=== PATIENT | female | born 2000 | race Two or more races ===

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

== ENCOUNTER 2020-03-25 20:23 | Emergency (ER) | payer MEDICAID ==
--- NOTE | 2020-03-25 20:50 | ER Document Report ---
ED General - General Chief Complaint: Hemorrhoids Stated Complaint: REPORTS HEMORRHOIDS Time Seen by Provider: 03/25/20 20:49 Primary Care Provider: CANDIDO BLACKWELL MD [Primary Care Provider] - Follow up as needed Mode of Arrival: Ambulatory Information source: Patient Notes: 20-year-old Citizen Of The [place] female arrives with chief complaint of having swollen belly from with some hemorrhoids. Patient was inspected with nursing staff around 2100 with internal hemorrhoids and fundus and epigastric area. She has had no care and has been feeling kicking. She reports she has had on and off periods irregular for the last several months and her last menstrual flow was in January 2020 Patient reports she is G2, P1 with a 1-year-old daughter at home. TRAVEL OUTSIDE OF THE [place] IN LAST 30 DAYS: No - Related Data Allergies/Adverse Reactions: No Known Allergies Allergy (Verified 03/25/20 20:43) Past Medical History - General Information source: Patient - Social History Smoking Status: Never Smoker Cigarette use (# per day): No Chew tobacco use (# tins/day): No Smoking Education Provided: No Frequency of alcohol use: None Drug Abuse: None Lives with: Family Family History: Reviewed & Not Pertinent Patient has homicidal ideation: No Renal/ Medical History: Denies: Hx Peritoneal Dialysis Review of Systems - Review of Systems Constitutional: No symptoms reported EENT: No symptoms reported Cardiovascular: No symptoms reported Respiratory: No symptoms reported Gastrointestinal: See HPI, Abdomen distended, Abdominal pain, Other - Hemorrhoid internal externally displaced on Valsalva Genitourinary: No symptoms reported Female Genitourinary: No symptoms reported Musculoskeletal: No symptoms reported Skin: No symptoms reported Hematologic/Lymphatic: No symptoms reported Neurological/Psychological: No symptoms reported Physical Exam - Vital signs Vitals: Temp 98.7 F 03/25/20 20:31 Interpretation: Normal - HEENT Head: Normocephalic, Atraumatic Eyes: Normal Pupils: PERRL Pharynx: Normal Neck: Normal - Respiratory Respiratory status: No respiratory distress Chest status: Nontender Breath sounds: Normal Chest palpation: Normal - Cardiovascular Rhythm: Regular Heart sounds: Normal auscultation Murmur: No - Abdominal Inspection: Gravid female Distension: Distended Bowel sounds: Normal Tenderness: Nontender Organomegaly: No organomegaly - Rectal Tenderness: Yes Hemorrhoids: Internal - Genitourinary External exam: Normal - Back Back: Normal - Extremities General upper extremity: Normal inspection General lower extremity: Normal inspection - Neurological Neuro grossly intact: Yes Cognition: Normal Orientation: AAOx4 Lesa Coma Scale Eye Opening: Spontaneous [place]a Coma Scale Verbal: Oriented [place]a Coma Scale Motor: Obeys Commands [place] Coma Scale Total: 15 Speech: Normal Motor strength normal: LUE, RUE, LLE, RLE Sensory: Normal - Psychological Associated symptoms: Normal affect - Skin Skin Temperature: Warm Skin Moisture: Dry Course - Vital Signs Vital signs: Temp Pulse Resp BP Pulse Ox 98.7 F 03/25/20 20:31 - Laboratory Result Diagrams: 03/25/20 21:10 03/25/20 21:10 Laboratory results interpreted by me: 03/25/20 03/25/20 21:10 21:10 Hgb 10.7 L Hct 32.1 L RDW 15.2 H Sodium 132.0 L Carbon Dioxide 20 L BUN 6 L Creatinine 0.35 L Alkaline Phosphatase 198 H Albumin 3.3 L Beta HCG, Quant 6786.40 H - Diagnostic Test Radiology reviewed: Reports reviewed Radiology results interpreted by me: 03/25/20 22:53 pt at 35 weeks 5lb 11 oz Critical Care Note - Critical Care Note Total time excluding time spent on procedures (mins): 90 Comments: I discussed this case with Dr. Donovan and she advises sending the patient upstairs to L&D; I discussed this with patient and she advises she is agreeable to this. Discharge - Discharge Clinical Impression: Qualifiers: Weeks of gestation: 35 weeks Qualified Code(s): Z3A.35 - 35 weeks gestation of Condition: Good Disposition: LABOR CHECK Admitting Provider: nasir Unit Admitted: Labor and Delivery Additional Instructions: Send patient upstairs to L&D Referrals: CANDIDO BLACKWELL MD [Primary Care Provider] - Follow up as needed
[2020-03-25] MEDS ORDERED: BACITRACIN ZINC OINTMENT 15 GM TP ONE (21:03)
[2020-03-25] MEDS ORDERED: HYDROCORTISONE 1% OINTMENT 28.35 GM TP SCH (21:15)
[2020-03-25 21:28] LABS: ABSOLUTE EOSINOPHILS # (AUTO) 0.1 10^3/uL (0.0-0.6); ABSOLUTE LYMPHOCYTES (AUTO) 1.8 10^3/uL (0.5-4.7); ABSOLUTE MONOCYTES (AUTO) 0.6 10^3/uL (0.1-1.4); ABSOLUTE NEUT (AUTO) 4.9 10^3/uL (1.7-8.2); BASOPHILS % (AUTO) 0.4 % (0-2); EOSINOPHILS % (AUTO) 1.7 % (0-6); HEMATOCRIT 32.1 % (36.0-47.0); HEMOGLOBIN 10.7 g/dL (12.0-15.5); LYMPHOCYTES % (AUTO) 24.5 % (13-45); MEAN CORPUSCULAR HEMOGLOBIN 27.1 pg (27.0-33.4); MEAN CORPUSCULAR HGB CONC 33.3 g/dL (32.0-36.0); MEAN CORPUSCULAR VOLUME 81 fl (80-97); MONOCYTES % (AUTO) 7.5 % (3-13); PLATELET COUNT 237 10^3/uL (150-450); RED BLOOD COUNT 3.95 10^6/uL (3.72-5.28); RED CELL DISTRIBUTION WIDTH 15.2 % (11.5-14.0); SEGMENTED NEUTROPHILS % (AUTO) 65.9 % (42-78); TOTAL CELLS COUNTED % (AUTO) 100 %; WHITE BLOOD COUNT 7.5 10^3/uL (4.0-10.5)
[2020-03-25 21:54] LABS: ALBUMIN 3.3 g/dL (3.5-5.0); ALKALINE PHOSPHATASE 198 U/L (38-126); ANION GAP 9 (5-19); ASPARTATE AMINO TRANSFERASE 17 U/L (14-36); BILIRUBIN,TOTAL 0.4 mg/dL (0.2-1.3); BLOOD UREA NITROGEN 6 mg/dL (7-20); CALCIUM 8.6 mg/dL (8.4-10.2); CARBON DIOXIDE 20 mmol/L (22-30); CHLORIDE 103 mmol/L (98-107); GLUCOSE 86 mg/dL (75-110); POTASSIUM 3.6 mmol/L (3.6-5.0); TOTAL PROTEIN 6.5 g/dL (6.3-8.2)
--- NOTE | 2020-03-25 22:30 | RADIOLOGY REPORT (SQ) ---
EXAM DESCRIPTION: [facility]: US FOLLOW UP CLINICAL HISTORY: 20 years Female; distended abd hemorrhoids; LMP 01/15/2020, 10 weeks 0 days TECHNIQUE: Transabdominal obstetrical ultrasound was performed. COMPARISON: None. FINDINGS: Number of fetuses: Single position: Vertex BPD: 8.61 cm, 34 weeks 5 days HC: 30.83 cm, 34 weeks 3 days AC: 31.31 cm, 35 weeks 2 days FL: 6.8 cm, 35 weeks 0 days EFW: 2572 g HR: 139 BPM Anatomy: Limited evaluation on this survey exam Amniotic fluid: REHANA 5.5 cm, decreased. LBP 2.4 x 3.4 cm Cervix: Could not be visualized Placenta: Posterior IMPRESSION: 1. Single viable IUP 2. EGA 34 weeks 6 days, EDC 04/30/2020 (discordant with stated LMP) 3. Oligohydramnios
[2020-03-25 23:31] VITALS: BP 124/72
== END 2020-03-25 23:10 | disposition admitted as inpatient to this hospital (09) ==
LOC: ER 20:23
DX: O22.43 Hemorrhoids in pregnancy, third trimester (principal); R10.9 Unspecified abdominal pain; Z3A.35 35 weeks gestation of pregnancy
CPT/HCPCS: 99285; 36415; 84702; 85025; 80053; 76805; J3490 ×2

== ENCOUNTER 2020-03-25 23:03 | Outpatient (CLI) | payer MEDICAID ==
[2020-03-25 23:59] LABS: APPEARANCE,URINE SLIGHTLY-CLOUDY; BILIRUBIN,URINE NEGATIVE (NEGATIVE); COLOR,URINE YELLOW; GLUCOSE, URINE NEGATIVE (NEGATIVE); KETONES,URINE TRACE mg/dL (NEGATIVE); LEUKOCYTE ESTERASE,URINE SMALL (NEGATIVE); NITRITE,URINE NEGATIVE (NEGATIVE); PROTEIN,URINE 30 mg/dL (NEGATIVE); URINE SPECIFIC GRAVITY 1.023
[2020-03-25 23:59] LABS: BACTERIA (WET MOUNT) 3+ BACTERIA SEEN; EPITHELIALS (WET MOUNT) 3+ EPITHELIALS SEEN; RBCS (WET MOUNT) 1+ RBCS SEEN; T.VAGINALIS (WET MOUNT) NO TRICHOMONAS SEEN; WBCS (WET MOUNT) 4+ WBCS SEEN; YEAST (WET MOUNT) YEAST SEEN
[2020-03-26 00:12] LABS: URINE AMPHETAMINES SCREEN NEGATIVE; URINE BARBITURATES SCREEN NEGATIVE; URINE BENZODIAZEPINES SCREEN NEGATIVE; URINE COCAINE SCREEN NEGATIVE; URINE METHADONE SCREEN NEGATIVE; URINE PHENCYCLIDINE SCREEN NEGATIVE
[2020-03-26 00:20] LABS: URINE MARIJUANA (THC) SCREEN UNCONFIRMED POSITIVE
[2020-03-26 01:23] LABS: CHLAM PCR NOT DETECTED (NOT DETECT)
[2020-03-26] MEDS ORDERED: FLUCONAZOLE 100 MG TABLET PO ONE (01:54)
[2020-03-26] MEDS ORDERED: FLUCONAZOLE 100 MG TABLET ONE (01:57)
--- NOTE | 2020-03-26 02:23 | Non Stress Test Report ---
Non Stress Test Datetime Report Generated by CPN: 03/26/2020 02:23 DEMOGRAPHIC EGA NST: 34.6 INDICATION Indication for Study (NST) Other: labor check MONITORING Monitor Explained: Monitor Explained; Test Explained; Patient Verbalized Understanding Time on Monitor: 03/25/2020 23:26 Time off Monitor: 03/26/2020 01:00 NST Duration: 94 NST INTERVENTIONS NST Interventions: PO Hydration Physician Notified NST: Dr. Donovan BABY A: [id number] BABY A Movement : Present Movement : Present Contraction Frequency : irregular FHR Baseline : 130 Accelerations : 15X15 Decelerations : None Variability : Moderate 6-25bpm NST Review: Meets Criteria for Reactive NST NST Review and Verified By : KAE Seay Results: Reactive NST REPORT Report Trigger: Send Report
[2020-03-27 10:36] LABS: HEPATITS B SURFACE ANTIGEN Negative (Negative); HSV-I IGG AB <0.91 index (0.00-0.90)
== END 2020-03-26 02:16 | disposition home or self-care (01) ==
LOC: LC 23:03
PROVIDERS: ATTEND Student in an Organized Health Care Education/Training Program
DX: O47.03 False labor before 37 completed weeks of gestation, third trimester (principal); Z3A.34 34 weeks gestation of pregnancy
CPT/HCPCS: 59025; 86696; 86695 ×2; 86900; 86901; 36415; 87086; 87210; 86850; 84443; 86762; 86592; 81001; 87081; 87340; 86701; 80307; 83036; 87522; 87491; 87591; 84112; G0480 ×2; J3490; 80349

== ENCOUNTER 2020-03-27 16:22 | Inpatient (IN) | payer MEDICAID ==
[2020-03-27] MEDS ORDERED: PENICILLIN G POTASSIUM 5,000,000 UNIT in DEXTROSE 5%-WATER 100 ML IV ONE (16:39)
[2020-03-27] MEDS ORDERED: RINGERS SOLUTION,LACTATED 1,000 ML IV ONE (16:39)
[2020-03-27] MEDS ORDERED: PENICILLIN G-K 5 MILLION UNIT VIAL ONE ×3 (16:43→20:24)
[2020-03-27] MEDS ORDERED: OXYTOCIN 10 UNIT/ML VIAL ONE (16:44)
[2020-03-27] MEDS ORDERED: OXYTOCIN/NORMAL SALINE 20 UNIT/1,000 ML RTUINJ ONE (16:44)
[2020-03-27] MEDS ORDERED: MISOPROSTOL 0.2 MG TABLET ONE (16:44)
[2020-03-27] MEDS ORDERED: LIDOCAINE 1% INJ-PF (10 MG/ML) 30 ML SDV ONE (16:44)
[2020-03-27 17:35] LABS: ABSOLUTE LYMPHOCYTES (AUTO) 1.3 10^3/uL (0.5-4.7); ABSOLUTE MONOCYTES (AUTO) 0.6 10^3/uL (0.1-1.4); ABSOLUTE NEUT (AUTO) 5.8 10^3/uL (1.7-8.2); BASOPHILS % (AUTO) 0.4 % (0-2); EOSINOPHILS % (AUTO) 0.5 % (0-6); HEMATOCRIT 33.7 % (36.0-47.0); HEMOGLOBIN 11.4 g/dL (12.0-15.5); LYMPHOCYTES % (AUTO) 17.3 % (13-45); MEAN CORPUSCULAR HEMOGLOBIN 27.6 pg (27.0-33.4); MEAN CORPUSCULAR VOLUME 81 fl (80-97); MONOCYTES % (AUTO) 7.1 % (3-13); PLATELET COUNT 252 10^3/uL (150-450); RED BLOOD COUNT 4.14 10^6/uL (3.72-5.28); RED CELL DISTRIBUTION WIDTH 15.6 % (11.5-14.0); SEGMENTED NEUTROPHILS % (AUTO) 74.7 % (42-78); TOTAL CELLS COUNTED % (AUTO) 100 %; WHITE BLOOD COUNT 7.7 10^3/uL (4.0-10.5)
[2020-03-27 18:29] LABS: APPEARANCE,URINE CLEAR; BILIRUBIN,URINE NEGATIVE (NEGATIVE); COLOR,URINE YELLOW; GLUCOSE, URINE NEGATIVE (NEGATIVE); KETONES,URINE 80 mg/dL (NEGATIVE); LEUKOCYTE ESTERASE,URINE NEGATIVE (NEGATIVE); NITRITE,URINE NEGATIVE (NEGATIVE); PROTEIN,URINE NEGATIVE (NEGATIVE); URINE SPECIFIC GRAVITY 1.025
[2020-03-27 18:45] LABS: URINE AMPHETAMINES SCREEN NEGATIVE; URINE BARBITURATES SCREEN NEGATIVE; URINE BENZODIAZEPINES SCREEN NEGATIVE; URINE COCAINE SCREEN NEGATIVE; URINE METHADONE SCREEN NEGATIVE; URINE PHENCYCLIDINE SCREEN NEGATIVE
[2020-03-27 18:50] LABS: URINE MARIJUANA (THC) SCREEN UNCONFIRMED POSITIVE
[2020-03-27] MEDS ORDERED: EPHEDRINE SULFATE INJ 50 MG/1 ML AMPULE ONE (20:21)
[2020-03-27] MEDS ORDERED: FENTANYL/BUPIVACAINE/NS/PF 300 MCG/150 ML RTUINJ EPI ONE (20:22)
[2020-03-27] MEDS ORDERED: BUPIVACAINE HCL 0.25 % INJ/PF (2.5 MG/1 ML) 30 ML VIAL ONE (20:22)
--- NOTE | 2020-03-27 20:31 | Admission Physical ---
Datetime Report Generated by CPN: 03/27/2020 20:30 CURRENT ADMISSION Chief Complaint: Uterine Contractions; Suspected Ruptured Membranes Admit Impression : , Intrauterine ; Active Labor; Ruptured Membranes Admit Plan: Admit to Unit; Initiate Labor Protocol ALLERGIES Medication Allergies: No Medication Allergies: No Known Allergies (03/27/2020) Latex: No Latex Allergies OBSTETRICAL HISTORY EDC: 04/30/2020 00:00 : 2 Para: 1 Term: 1 : 0 SAB: 0 IAB: 0 Ectopic: 0 Livin Cesareans: 0 VBACs: 0 Multiple Births: 0 Gestational Diabetes: No Rh Sensitization: No Incompetent Cervix: No RICHELLE: No Infertility: No ART Treatment: No Uterine Anomaly: No IUGR: No Hx Previous C/S: No Macrosomia: No Hx Loss/Stillborn: No PIH: No Hx : No Placenta Previa/Abruption: No Depression/PP Depression: No PTL/PROM: No Post Hemorrhage: No Current Procedures: Ultrasound Obstetrical History Comments: G1-, Boy-Term 2018, 7# 11oz G2-Current SEE RECORDS Alcohol: Yes Alcohol Frequency: Occasional Advised to Stop: No Alcohol Comments: Pt drank occasionally throughout the . Marijuana : No Marijuana Frequency: Occasional Last Used: 02/03/2020 00:00 Previous Treatment: None Cocaine: No Other Illicit Drugs: No Cigarettes: Never Smoker. [id number] MEDICAL HISTORY Diabetes: No Blood Transfusion: No Pulmonary Disease (Asthma, TB): No Breast Disease: No Hypertension: No Materials Intern Surgery: No Heart Disease: No Hosp/Surgery: Yes Autoimmune Disorder: No Anesthetic Complications: No Kidney Disease: No Abnormal Pap Smear: No Neuro/Epilepsy: No Psychiatric Disorders: No Other Medical Diseases: No Hepatitis/Liver Disease: No Significant Family History: No Varicosities/Phlebitis: No Trauma/Violence : No Thyroid Dysfunction: No Medical History Comments: Childbirth 2017 INFECTIOUS HISTORY Gonorrhea: No Genital Herpes: No Chlamydia: Yes Tuberculosis: No Syphilis: No Hepatitis: No HIV/AIDS Exposure: No Rash or Viral Illness: No HPV: No Infectious History Comments: Chlamydia-2017 PHYSICAL EXAM General: Normal HEENT: Normal Neurologic: Normal Thyroid: Normal Heart: Normal Lungs: Normal Breast: Normal Back: Normal Abdomen: Normal Genitourinary Exam: Normal Extremities: Normal DTRs: Normal Pelvic Type: Adequate Vital Signs: Reviewed; Within Normal Limits VAGINAL EXAM Dilatation: 2 Effacement: 50 Station: -2 Contraction Comments: Regular MEMBRANES Pooling: Positive Membranes: Ruptured Amniotic Fluid Color: Meconium, Heavy FETUS A EGA: 35.1 Monitoring: External US FHR- Baseline: 145 Variability: Moderate 6-25bpm Accelerations: 10X10 Decelerations: None FHR Category: Category I Presentation: Vertex Admit Comment: at 35.1 wks EGA with complaints of ruptured membranes at around 1500 today. She states fluid looked green. No Vaginal bleeding. Good movement. _Admit to LDR -Positive SROM by actiprom and grossly mec stained fluid -GBS pending, begin PCN IV for GBS prophylaxis -NPO and IVFs -Desires Epidural -Hx of one prior , anticipate PLANS FOR LABOR AND DELIVERY Labor and Delivery: None Pain Management: Epidural Feeding Preference: Breast Benefit of Breast Feed Discussed: Yes Circumcision: N/A INFORMED CONSENT Informed Consent Obtained: Vaginal Delivery; Risks, Benefits and Alternatives Discussed Signature: with User ID: Sahra : with User ID: Sahra
[2020-03-27] MEDS: PENICILLIN G POTASSIUM 2,500,000 UNIT in DEXTROSE 5%-WATER 50 ML IV SCH (20:47)
[2020-03-27] MEDS ORDERED: GLYCOPYRROLATE INJ 0.4 MG/2 ML VIAL ONE (21:22)
[2020-03-27] MEDS ORDERED: PHENYLEPHRINE HCL INJ/PF 10 MG/1 ML SDV ONE (21:22)
[2020-03-27] MEDS ORDERED: MEASLES,MUMPS&RUBELLA VACC/PF 0.5 ML VIAL SUBCUT PRN (23:13)
[2020-03-27] MEDS ORDERED: PROMETHAZINE HCL 25 MG SUPP.RECT PR PRN (23:13)
[2020-03-27] MEDS ORDERED: ZOLPIDEM TARTRATE 5 MG TABLET PO PRN (23:13)
[2020-03-27] MEDS ORDERED: DIPH/PERTUSS(ACELL)/TETANUS VAC/PF 0.5 ML SYR (>=10YO) IM PRN (23:13)
[2020-03-27] MEDS ORDERED: PSEUDOEPHEDRINE HCL 30 MG TABLET PO PRN (23:13)
[2020-03-27] MEDS ORDERED: DIPHENHYDRAMINE HCL 25 MG CAPSULE PO PRN (23:13)
[2020-03-27] MEDS ORDERED: DIBUCAINE 1% OINTMENT 28 GM TP PRN (23:13)
[2020-03-27] MEDS ORDERED: ACETAMINOPHEN WITH CODEINE #3 TABLET PO PRN ×2 (23:13)
[2020-03-27] MEDS ORDERED: MAGNESIUM HYDROXIDE SUSP 30 ML UDCUP PO PRN (23:13)
[2020-03-27] MEDS ORDERED: GLYCERIN/WITCH HAZEL LEAF 1 EACH MED..WIPE TP PRN (23:13)
[2020-03-27] MEDS ORDERED: PROMETHAZINE HCL INJ 25 MG/1 ML VIAL IV PRN (23:13)
[2020-03-27] MEDS ORDERED: OXYTOCIN/NORMAL SALINE 20 UNIT/1,000 ML RTUINJ IV PRN (23:13)
[2020-03-27] MEDS ORDERED: ACETAMINOPHEN 650 MG SUPP.RECT PR PRN (23:13)
[2020-03-27] MEDS ORDERED: PROMETHAZINE HCL 25 MG TABLET PO PRN (23:13)
[2020-03-27] MEDS ORDERED: NA PHOS,M-B/NA PHOS,DI-BA (ADULT) 133 ML ENEMA PR PRN (23:13)
[2020-03-27] MEDS ORDERED: FAMOTIDINE 20 MG TABLET PO ONE (23:30)
[2020-03-27] MEDS ORDERED: IBUPROFEN 800 MG TABLET PO ONE (23:30)
--- NOTE | 2020-03-28 01:05 | Warning Signs in Babies ---
VOD Warning Signs Datetime Report Generated by [facility]: 03/28/2020 01:04 VOD#608 -Warning Signs in Babies: Needs to be viewed. (03/25/2020 23:20:Dee Ortega RN)
--- NOTE | 2020-03-28 01:06 | Delivery Summary ---
Del Sum A-C Datetime Report Generated by CPN: 03/28/2020 01:05 DELIVERY PERSONNEL DELIVERY PERSONNEL: [id number] Delivery Doctor:: Kalee Young MD Labor and Delivery Nurse:: Dee Ortega RNtransfer machine operator Nurse:: Deedee Giordano RN Nursery Nurse:: Faby Gordillo RN Nursery Nurse:: Ivette Lan RN Reliability Technician/OPERATIONS CONTROLLER: ST Joanne Reliability Technician/OPERATIONS CONTROLLER: Sylvie Mendez, RAIL LOADER Additional Personnel: : Faby Thomason RN MATERNAL INFORMATION Delivery Anesthesia: Epidural Medications After Delivery: Pitocin Drip 20 Units/1000ml NSS Estimated Blood Loss (ml): 300 Maternal Complications: Precipitous Labor (<3hrs) Provider Comments: Called to patients room as she was +3 with urge to push. Pushed through 2 contractions and delivered a viable female with Apgars of 8,9 at one and 5 minutes repectfully LABOR SUMMARY EDC: 04/30/2020 00:00 No. Babies in Womb: 1 Attempted: No Labor Anesthesia: None LABOR INFORMATION Reason for Induction: Not Applicable Onset of Labor: 03/27/2020 20:13 Complete Dilatation: 03/27/2020 22:31 Oxytocin: N/A Group B Beta Strep: unknown Antibiotics # of Doses: 2 Antibiotics Time of Last Dose: 2046 Name of Antibiotic Given: PCN Steroids Given: None Reason Steroids Not Administered: Not Applicable MEMBRANES Membranes Rupture Method: Spontaneous Rupture of Membranes: 03/27/2020 16:00 Length of Rupture (hr): 6.60 Amniotic Fluid Color: Heavy Meconium Amniotic Fluid Amount: Moderate STAGES OF LABOR Stage 1 hr: 2 Stage 1 min: 18 Stage 2 hr: 0 Stage 2 min: 5 Stage 3 hr: 24 Stage 3 min: 4 Total Time in Labor hr: 26 Total Time in Labor min: 27 VAGINAL DELIVERY Episiotomy: None Laceration #1: Perineal Laceration Extension #1: First Degree Laceration Repair: Yes Laceration Repair Note: Repaired with 3-0 chromic . Sponge Count Correct: Yes Sharps Count Correct: Yes CSECTION DELIVERY Primary Indication: N/A Secondary Indication: N/A CSection Incidence: N/A Labor: N/A Elective: N/A BABY A INFORMATION Infant Delivery Date/Time: 03/27/2020 22:36 Method of Delivery: Vaginal Born in Route : No : N/A Forceps: N/A Vacuum Extraction: N/A Shoulder Dystocia : No PRESENTATION/POSITION BABY A Presentation: Cephalic Cephalic Presentation: Vertex Vertex Position: Left Occipital Anterior Breech Presentation: N/A PLACENTA INFORMATION BABY A Placenta Delivery Time : 03/28/2020 22:40 Placenta Method of Delivery: Spontaneous Placenta Status: Delivered SCORES BABY A Heart Rate 1 min: >100 bpm Resp Effort 1 min: Good Cry Reflex Irritability 1 min: Cough or Sneeze or Pulls Away Muscle Tone 1 min: Active Motion Color 1 min: Blue/Pale Resuscitation Effort 1 min: Tactile Stimulation SCORE 1 MIN: 8 Heart Rate 5 min: >100 bpm Resp Effort 5 min: Good Cry Reflex Irritability 5 min: Cough or Sneeze or Pulls Away Muscle Tone 5 min: Active Motion Color 5 min: Body [place], Extremities Blue Resuscitation Effort 5 min: Tactile Stimulation SCORE 5 MIN: 9 INFORMATION BABY A Gestational Age at Delivery: 35.1 Gestational Status: Late - 34- 36.6 Weeks Outcome : Liveborn Infant Condition : Stable Sex: Female IDENTIFICATION BABY A Infant Verification Date/Time: 03/27/2020 23:54 ID Band Number: [id number] Mother's Name Verified: Yes RN Verifying : B. Ring _ H. Gordillo WEIGHT/LENGTH BABY A Infant Birthweight (gm): 2720 Weight (lb): 6 Infant Weight (oz): 0 Length (in): 19.29 Infant Length (cm): 49.00 CORD INFORMATION BABY A No. Cord Vessels: 3 Nuchal Cord : Around Neck x1, Loose Cord Blood Taken: Yes-For Eval (Mom's Blood Type - or O+) Suction: Mouth; Nose ASSESSMENT BABY A Infant Complications: Meconium Physical Findings at Delivery: Within Normal Limits Physical Findings- Other: See full nursery pumper gauger Infant Respirations: Appears Normal Skin to Skin: Yes Skin to Skin Time (min): 60 [place] Maker/ALS Called : No Care By: Cisco Gordillo RN, Cisco Thomason RN Transferred To: Remains with Mother BABY B INFORMATION : N/A SIGNATURES Signature: with User ID: [email or web address] : with User ID: [email or web address]
[2020-03-28] MEDS: PENICILLIN G POTASSIUM 2,500,000 UNIT in DEXTROSE 5%-WATER 50 ML IV SCH (01:25)
[2020-03-28] MEDS: BENZOCAINE/MENTHOL AEROSOL SPRAY 56 ML TOP PRN (01:48)
[2020-03-28] MEDS: IBUPROFEN 800 MG TABLET PO SCH ×3 (05:27→21:49)
[2020-03-28 07:09] LABS: HEMATOCRIT 29.9 % (36.0-47.0); HEMOGLOBIN 10.3 g/dL (12.0-15.5); MEAN CORPUSCULAR HEMOGLOBIN 27.9 pg (27.0-33.4); MEAN CORPUSCULAR HGB CONC 34.5 g/dL (32.0-36.0); MEAN CORPUSCULAR VOLUME 81 fl (80-97); PLATELET COUNT 251 10^3/uL (150-450); RED BLOOD COUNT 3.69 10^6/uL (3.72-5.28); RED CELL DISTRIBUTION WIDTH 15.2 % (11.5-14.0); WHITE BLOOD COUNT 8.1 10^3/uL (4.0-10.5)
[2020-03-28] MEDS: PRENATAL VITAMIN W DHA CAPSULE PO SCH (09:31)
[2020-03-28] MEDS: FERROUS SULFATE 325 MG TABLET PO SCH ×2 (09:31→18:29)
[2020-03-28] MEDS: DOCUSATE SODIUM 100 MG CAPSULE PO SCH ×2 (09:32→18:29)
[2020-03-28] MEDS: FAMOTIDINE 20 MG TABLET PO SCH ×2 (09:32→21:50)
[2020-03-28] MEDS: SENNOSIDES/DOCUSATE 8.6-50 MG 1 EACH TABLET PO SCH (09:32)
--- NOTE | 2020-03-28 11:07 | PDOC PROGRESS REPORT ---
Subjective-OB Progress Note for:: 03/28/20 Subjective: reports bleeding slowing, pain controlled with current meds, denies needs. Physical Exam (OB) Vital Signs: Temp Pulse Resp BP Pulse Ox 98.1 F 70 16 112/62 100 03/28/20 07:41 03/28/20 07:41 03/28/20 07:41 03/28/20 07:41 03/28/20 07:41 Intake & Output 03/27/20 03/28/20 03/29/20 06:59 06:59 06:59 Intake Total 600 Balance 600 Weight 84.09 kg - Abdomen Description: Soft Hernia Present: No Fundal Description: Firm, Midline Fundal Height: u/u - u/2 - Abdominal Distension: No distension Tenderness: Nontender - Extremities Calf: Normal, Nontender Objective-Diagnostic Laboratory: 03/28/20 06:48 03/27/20 03/27/20 03/27/20 17:19 17:19 17:53 WBC 7.7 RBC 4.14 Hgb 11.4 L Hct 33.7 L MCV 81 MCH 27.6 MCHC 34.0 RDW 15.6 H Plt Count 252 Seg Neutrophils % 74.7 Urine Color YELLOW Urine Appearance CLEAR Urine pH 7.0 Ur Specific [place] 1.025 Urine Protein NEGATIVE Urine Glucose (UA) NEGATIVE Urine Ketones 80 H Urine Blood SMALL H Urine Nitrite NEGATIVE Ur Leukocyte Esterase NEGATIVE Urine WBC (Auto) 3 Urine RBC (Auto) 1 Blood Type O POSITIVE Antibody Screen NEGATIVE 03/28/20 06:48 WBC 8.1 RBC 3.69 L Hgb 10.3 L Hct 29.9 L MCV 81 MCH 27.9 MCHC 34.5 RDW 15.2 H Plt Count 251 Seg Neutrophils % Urine Color Urine Appearance Urine pH Ur Specific [place] Urine Protein Urine Glucose (UA) Urine Ketones Urine Blood Urine Nitrite Ur Leukocyte Esterase Urine WBC (Auto) Urine RBC (Auto) Blood Type Antibody Screen
[2020-03-29] MEDS: BENZOCAINE/MENTHOL AEROSOL SPRAY 56 ML TOP PRN (01:00)
[2020-03-29] MEDS: IBUPROFEN 800 MG TABLET PO SCH (07:40)
[2020-03-29 07:44] VITALS: BP 107/58
[2020-03-29] MEDS: PRENATAL VITAMIN W DHA CAPSULE PO SCH (10:09)
[2020-03-29] MEDS: SENNOSIDES/DOCUSATE 8.6-50 MG 1 EACH TABLET PO SCH (10:09)
[2020-03-29] MEDS: FERROUS SULFATE 325 MG TABLET PO SCH (10:09)
[2020-03-29] MEDS: FAMOTIDINE 20 MG TABLET PO SCH (10:09)
[2020-03-29] MEDS: DOCUSATE SODIUM 100 MG CAPSULE PO SCH (10:09)
--- NOTE | 2020-03-29 10:40 | PDOC DISCHARGE SUMMARY ---
Impression - Admit/DC Date/PCP Admission Date/Primary Care Provider: 03/27/20 17:15 SRUTHI JUNG MD Discharge Date: 03/29/20 - Discharge Diagnosis (1) Meconium in amniotic fluid Is this a current diagnosis for this admission?: Yes (2) Obstetrical laceration Is this a current diagnosis for this admission?: Yes (3) delivery Is this a current diagnosis for this admission?: Yes (5) GBS (group B Streptococcus carrier), +RV culture, currently Is this a current diagnosis for this admission?: Yes (6) Normal vaginal delivery Is this a current diagnosis for this admission?: Yes - Additional Information Discharge Diet: Regular Discharge Activity: Balance Activity w/Rest, Pelvic Rest Referrals: SRUTHI JUNG MD [Primary Care Provider] - Prescriptions: Ibuprofen [Motrin 800 mg Tablet] 800 mg PO Q8HP PRN #60 tablet PRN Reason: Home Medications: Prenat 115/Iron Fum/Folic/Dss [ 19 Tablet] 1 tab PO DAILY 03/25/20 Ibuprofen [Motrin 800 mg Tablet] 800 mg PO Q8HP PRN #60 tablet 03/29/20 Results Laboratory Results: WBC 8.1 10^3/uL (4.0-10.5) 03/28/20 06:48 RBC 3.69 10^6/uL (3.72-5.28) L 03/28/20 06:48 Hgb 10.3 g/dL (12.0-15.5) L 03/28/20 06:48 Hct 29.9 % (36.0-47.0) L 03/28/20 06:48 MCV 81 fl (80-97) 03/28/20 06:48 MCH 27.9 pg (27.0-33.4) 03/28/20 06:48 MCHC 34.5 g/dL (32.0-36.0) 03/28/20 06:48 RDW 15.2 % (11.5-14.0) H 03/28/20 06:48 Plt Count 251 10^3/uL (150-450) 03/28/20 06:48 Lymph % (Auto) 17.3 % (13-45) 03/27/20 17:19 [place] % (Auto) 7.1 % (3-13) 03/27/20 17:19 Eos % (Auto) 0.5 % (0-6) 03/27/20 17:19 Baso % (Auto) 0.4 % (0-2) 03/27/20 17:19 Absolute Neuts (auto) 5.8 10^3/uL (1.7-8.2) 03/27/20 17:19 Absolute Lymphs (auto) 1.3 10^3/uL (0.5-4.7) 03/27/20 17:19 Absolute Monos (auto) 0.6 10^3/uL (0.1-1.4) 03/27/20 17:19 Absolute Eos (auto) 0.0 10^3/uL (0.0-0.6) 03/27/20 17:19 Absolute Basos (auto) 0.0 10^3/uL (0.0-0.2) 03/27/20 17:19 Seg Neutrophils % 74.7 % (42-78) 03/27/20 17:19 Urine Color YELLOW 03/27/20 17:53 Urine Appearance CLEAR 03/27/20 17:53 Urine pH 7.0 (5.0-9.0) 03/27/20 17:53 Ur Specific [place] 1.025 03/27/20 17:53 Urine Protein NEGATIVE mg/dL (NEGATIVE) 03/27/20 17:53 Urine Glucose (UA) NEGATIVE mg/dL (NEGATIVE) 03/27/20 17:53 Urine Ketones 80 mg/dL (NEGATIVE) H 03/27/20 17:53 Urine Blood SMALL (NEGATIVE) H 03/27/20 17:53 Urine Nitrite NEGATIVE (NEGATIVE) 03/27/20 17:53 Urine Bilirubin NEGATIVE (NEGATIVE) 03/27/20 17:53 Urine Urobilinogen 4.0 mg/dL (<2.0) H 03/27/20 17:53 Ur Leukocyte Esterase NEGATIVE (NEGATIVE) 03/27/20 17:53 Urine WBC (Auto) 3 /HPF 03/27/20 17:53 Urine RBC (Auto) 1 /HPF 03/27/20 17:53 U Hyaline Cast (Auto) 1 /LPF 03/27/20 17:53 Squamous Epi Cells Auto 1 /HPF 03/27/20 17:53 Urine Mucus (Auto) FEW /LPF 03/27/20 17:53 Urine Ascorbic Acid NEGATIVE (NEGATIVE) 03/27/20 17:53 Membranes Rupture POSITIVE (NEGATIVE) H 03/27/20 16:38 Urine Opiates Screen NEGATIVE 03/27/20 17:53 Urine Methadone Screen NEGATIVE 03/27/20 17:53 Ur Barbiturates Screen NEGATIVE 03/27/20 17:53 Ur Phencyclidine Scrn NEGATIVE 03/27/20 17:53 Ur Amphetamines Screen NEGATIVE 03/27/20 17:53 U Benzodiazepines Scrn NEGATIVE 03/27/20 17:53 Urine Cocaine Screen NEGATIVE 03/27/20 17:53 U Marijuana (THC) Screen UNCONFIRMED POSITIVE 03/27/20 17:53 Blood Type O POSITIVE 03/27/20 17:19 Antibody Screen NEGATIVE 03/27/20 17:19 Plan Plan of Treatment: follow up in 4 weeks at [facility] for post check
== END 2020-03-29 11:37 | disposition home or self-care (01) | DRG 807 ==
LOC: LC 16:22 → LR 17:15 → 2S 03-28 01:11
PROVIDERS: ADMIT Obstetrics & Gynecology; ATTEND Obstetrics & Gynecology
PROC: 10E0XZZ Delivery of Products of Conception, External Approach (ICD-10-PCS; principal; 2020-03-27)
PROC: 0HQ9XZZ Repair Perineum Skin, External Approach (ICD-10-PCS; 2020-03-27)
PROC: 3E0234Z Introduction of Serum, Toxoid and Vaccine into Muscle, Percutaneous Approach (ICD-10-PCS; 2020-03-27)
DX: O60.14X0 Preterm labor third trimester with preterm delivery third trimester, not applicable or unspecified (principal); Z37.0 Single live birth; O99.824 Streptococcus B carrier state complicating childbirth; O70.9 Perineal laceration during delivery, unspecified; O77.0 Labor and delivery complicated by meconium in amniotic fluid; O62.3 Precipitate labor; O69.81X0 Labor and delivery complicated by cord around neck, without compression, not applicable or unspecified; Z23 Encounter for immunization; Z3A.35 35 weeks gestation of pregnancy
CPT/HCPCS: 1967; 36415; 80307; 81001; 84112; 85025; 85027; 86592; 86850; 86900; 86901; 88307; 90715; 94760; J2370; J2540; J2590; J3010; J3490; J7060

== ENCOUNTER 2020-11-24 08:47 | Emergency (ER) | payer MEDICAID ==
[2020-11-24] MEDS ORDERED: KETOROLAC TROMETHAMINE INJ/PF 30 MG/1 ML SDV IV ONE (09:56)
[2020-11-24] MEDS ORDERED: ONDANSETRON HCL INJ/PF 4 MG/2 ML SDV IV ONE (09:56)
[2020-11-24] MEDS ORDERED: NORMAL SALINE 1000 ML 1,000 ML IV ONE (09:56)
[2020-11-24 10:19] LABS: ABSOLUTE LYMPHOCYTES (AUTO) 0.9 10^3/uL (0.5-4.7); ABSOLUTE MONOCYTES (AUTO) 0.7 10^3/uL (0.1-1.4); ABSOLUTE NEUT (AUTO) 5.1 10^3/uL (1.7-8.2); BASOPHILS % (AUTO) 0.5 % (0-2); EOSINOPHILS % (AUTO) 0.7 % (0-6); HEMATOCRIT 38.6 % (36.0-47.0); LYMPHOCYTES % (AUTO) 13.1 % (13-45); MEAN CORPUSCULAR HEMOGLOBIN 27.6 pg (27.0-33.4); MEAN CORPUSCULAR HGB CONC 33.6 g/dL (32.0-36.0); MEAN CORPUSCULAR VOLUME 82 fl (80-97); MONOCYTES % (AUTO) 10.4 % (3-13); PLATELET COUNT 203 10^3/uL (150-450); SEGMENTED NEUTROPHILS % (AUTO) 75.3 % (42-78); TOTAL CELLS COUNTED % (AUTO) 100 %; WHITE BLOOD COUNT 6.8 10^3/uL (4.0-10.5)
--- NOTE | 2020-11-24 10:22 | ER Document Report ---
ED GI/ - General Chief Complaint: Nausea/Vomiting/Diarrhea Stated Complaint: ABDOMINAL PAIN POSSIBLE FOOD POISONING Time Seen by Provider: 11/24/20 09:19 Primary Care Provider: SRUTHI JUNG MD [Primary Care Provider] - Follow up as needed TRAVEL OUTSIDE OF THE [place] IN LAST 30 DAYS: No - HPI Notes: 11/24/20 10:17 Patient is a 20-year-old female with no significant past medical history who presents with diarrhea and vomiting. Patient states she ate [place] food 2 nights ago. She ate the food around 11 PM and woke up around 2 AM with vomiting and diarrhea. Her boyfriend had similar symptoms but his have already resolved. She denies any blood in the stool. She states she has abdominal cramping in her lower abdomen before having diarrhea. As soon as she has diarrhea, the abdominal pain resolves. She states this has been happening intermittently numerous times a day since the symptoms started. She denies any fevers. She states she did have some chills. No chest pain or shortness of breath. No cough. No sore throat. No recent sick contacts. No known Covid exposure. No urinary symptoms. No rashes. - Related Data Allergies/Adverse Reactions: No Known Allergies Allergy (Verified 03/27/20 18:08) Past Medical History - General Information source: Patient - Social History Smoking Status: Never Smoker Chew tobacco use (# tins/day): No Frequency of alcohol use: None Drug Abuse: None Family History: Reviewed & Not Pertinent Renal/ Medical History: Denies: Hx Peritoneal Dialysis Psychiatric Medical History: Denies: Hx Depression Review of Systems - Review of Systems Notes: CONSTITUTIONAL: No fever. Positive for fatigue. SKIN: No rash. HENT: No congestion, ear pain, or sore throat. EYES: No recent vision problems or eye pain. CARDIOVASCULAR: No chest pain or edema. RESPIRATORY: No cough, shortness of breath, congestion, or wheezing. GASTROINTESTINAL: Positive for abdominal cramping, nausea, vomiting, diarrhea. GENITOURINARY: No dysuria. MUSCULOSKELETAL: No joint pain or swelling. LYMPHATIC: No swollen glands. NEUROLOGIC: No seizures. No headache, focal weakness or sensory changes. HEMATOLOGIC: No unusual bruising or bleeding. PSYCHIATRIC: No depression or anxiety. Physical Exam - Vital signs Vitals: Temp Pulse Resp BP Pulse Ox 98.4 F 101 H 18 117/75 100 11/24/20 08:54 11/24/20 08:54 11/24/20 08:54 11/24/20 08:54 11/24/20 08:54 - General General appearance: Appears well In distress: None Notes: VITAL SIGNS: Within normal limits. GENERAL: No acute distress, non-toxic appearance. HEAD: Normal with no signs of head trauma. EYES: Conjunctiva normal, no discharge. EARS: Hearing grossly intact. NOSE: Normal. NECK: Normal range of motion, no tenderness, supple, no lymphadenopathy, No adenopathy, no JVD. CHEST: Clear breath sounds bilaterally. CARDIAC: Regular rate and rhythm. VASCULAR: No Edema. ABDOMEN: Normal and soft with no tenderness, no masses or pulsatile masses. Abdomen is soft. No rigidity. No guarding. No right lower quadrant tenderness. No right upper quadrant tenderness. GENITOURINARY: Normal, No tenderness MUSCULOSKELETAL: Good range of motion of all major joints. Extremities without clubbing, cyanosis or edema. NEUROLOGICAL: Alert and oriented x 3. No focal sensory or strength deficits. Speech normal. Follows commands appropriately. PSYCHIATRIC: Normal Affect, judgement and mood. SKIN: Normal appearance with no rashes or lesions. Course - Re-evaluation Re-evalutation: 11/24/20 10:22 Patient states her symptoms all started after she ate [place] food. I will obtain work-up as above. Patient will be hydrated. I did discuss Covid testing with her as she has nausea, vomiting, diarrhea, chills which could be symptoms. Patient is in agreement. She was told that she needs to self isolate until she is called with a negative result. Nursing staff states that she refused Covid when they went in the room. Patient's lab work is unremarkable. Her urine is contaminated. I will send a urine culture. She is denying any urinary symptoms. I educated patient on taking probiotics and eating yogurt. She was instructed to drink Gatorade and water and stay hydrated. Patient was told that she can have [id number] antidiarrheals. She was given strict return precautions. Patient is very agreeable to the plan. Lilia was sent to the pharmacy. 11/24/20 19:12 11/24/20 19:13 - Vital Signs Vital signs: Temp Pulse Resp BP Pulse Ox 97.7 F 90 18 118/61 99 11/24/20 13:47 11/24/20 13:47 11/24/20 13:47 11/24/20 13:47 11/24/20 13:47 - Laboratory Results Result Diagrams: 11/24/20 10:00 11/24/20 10:00 Laboratory Results Interpreted: 11/24/20 11/24/20 11/24/20 10:00 10:00 10:00 RDW 15.0 H Sodium 135.2 L Potassium 3.4 L Urine Protein 30 H Urine Ketones 20 H Urine Blood MODERATE H Ur Leukocyte Esterase LARGE H Critical Laboratory Results Reviewed: No Critical Results - Radiology Results Critical Radiology Results Reviewed: No Critical Results Discharge - Discharge Clinical Impression: Vomiting and diarrhea Condition: Stable Disposition: HOME, SELF-CARE Instructions: Diarrhea, Nonspecific ([facility]), Vomiting ([facility]) Additional Instructions: Your work-up today is reassuring. Please follow-up with your family doctor. You may take your anti-nausea medicine as prescribed. You may knot picker cloth antidiarrheals at the pharmacy. Please return to the ER immediately if symptoms do not improve in 24 hours. Also please return if you have any blood in the stool, fever, or worsening abdominal pain. You may knot picker cloth probiotics at the pharmacy as well or eat yogurt. Please eat a bland diet until you feel better. Make sure you are staying hydrated. Prescriptions: Ondansetron [Zofran Odt 4 mg Tablet] 4 mg PO Q6H PRN 7 Days #10 tab.rapdis PRN Reason: Referrals: SRUTHI JUNG MD [Primary Care Provider] - Follow up as needed
[2020-11-24 10:49] LABS: ALBUMIN 3.8 g/dL (3.5-5.0); ALKALINE PHOSPHATASE 93 U/L (38-126); ANION GAP 6 (5-19); ASPARTATE AMINO TRANSFERASE 17 U/L (14-36); BILIRUBIN,DIRECT 0.2 mg/dL (0.0-0.4); BILIRUBIN,TOTAL 0.3 mg/dL (0.2-1.3); BLOOD UREA NITROGEN 13 mg/dL (7-20); CALCIUM 8.8 mg/dL (8.4-10.2); CARBON DIOXIDE 27 mmol/L (22-30); CHLORIDE 102 mmol/L (98-107); GLUCOSE 108 mg/dL (75-110); POTASSIUM 3.4 mmol/L (3.6-5.0); TOTAL PROTEIN 6.9 g/dL (6.3-8.2)
[2020-11-24 13:32] LABS: AMORPHOUS SEDIMENT,URINE TRACE /HPF; APPEARANCE,URINE CLOUDY; BILIRUBIN,URINE NEGATIVE (NEGATIVE); COLOR,URINE YELLOW; GLUCOSE, URINE NEGATIVE (NEGATIVE); KETONES,URINE 20 mg/dL (NEGATIVE); LEUKOCYTE ESTERASE,URINE LARGE (NEGATIVE); NITRITE,URINE NEGATIVE (NEGATIVE); PROTEIN,URINE 30 mg/dL (NEGATIVE); URINE SPECIFIC GRAVITY 1.024; UROBILINOGEN,URINE NEGATIVE mg/dL (<2.0)
[2020-11-24 14:11] VITALS: BP 118/61
== END 2020-11-24 14:18 | disposition home or self-care (01) ==
LOC: ER 08:47
DX: R11.2 Nausea with vomiting, unspecified (principal); R19.7 Diarrhea, unspecified; R10.30 Lower abdominal pain, unspecified; R53.83 Other fatigue; R68.83 Chills (without fever)
CPT/HCPCS: 99284; 96361; 96374; 96375; 36415; 87086; 83690; 85025; 81025; 87088; 80053; 81001; J1885; J2405; J7030